=== PATIENT | male | born 1960 | race Hispanic/Latino ===

== ENCOUNTER 2024-06-02 10:37 | Emergency (ER) | payer BC, MEDICARE ==
[~2024-06-02] VITALS: Ht 180.3 cm; Wt 90.7 kg
[2024-06-02 10:50] VITALS: TEMP 97.6
[2024-06-02] MEDS ORDERED: SODIUM CHLORIDE FLUSH 10 ML SYR IV PRN (11:30)
[2024-06-02 11:44] LABS: BASOPHILS # (AUTO) 0.1 (0.0-0.1); BASOPHILS % 0.4 % (0.0-1.0); EOSINOPHILS # (AUTO) 0.1 (0.0-0.4); EOSINOPHILS % 0.8 % (0.0-6.0); HEMATOCRIT 49.2 % (38.2-49.6); HEMOGLOBIN 17.1 g/dL (14.0-18.0); LYMPHOCYTES # (AUTO) 3.3 (1.0-3.2); LYMPHOCYTES % 23.7 % (18.0-39.1); MEAN CORPUSCULAR HEMOGLOBIN 31.3 pg (28-32); MEAN CORPUSCULAR HGB CONC 34.8 g/dL (31-35); MEAN CORPUSCULAR VOLUME 90.1 fL (81-99); MONOCYTES # (AUTO) 0.6 (0.2-0.8); MONOCYTES % 4.3 % (4.4-11.3); NEUTROPHILS # (AUTO) 9.9 (2.1-6.9); NEUTROPHILS % 70.4 % (38.7-80.0); PLATELET COUNT 239 x10e3/uL (140-360); RED BLOOD COUNT 5.46 x10e6/uL (4.3-5.7); RED CELL DISTRIBUTION WIDTH 13.3 % (11.7-14.4); WHITE BLOOD COUNT 14.02 x10e3/uL (4.8-10.8)
[2024-06-02 11:49] LABS: INR 1.04; PROTHROMBIN TIME 14.1 seconds (11.9-14.5)
[2024-06-02 11:50] LABS: PARTIAL THROMBOPLASTIN TIME 24.7 seconds (23.8-35.5)
[2024-06-02 11:56] LABS: ALANINE AMINOTRANSFERASE 24 IU/L (0-55); ALBUMIN 4.3 g/dL (3.5-5.0); ALBUMIN/GLOBULIN RATIO 1.3 (0.8-2.0); ALKALINE PHOSPHATASE 57 IU/L (40-150); ANION GAP 13.7 mmol/L (8-16); BILIRUBIN,TOTAL 0.8 mg/dL (0.2-1.2); BLOOD UREA NITROGEN 18 mg/dL (7-26); BUN/CREATININE RATIO 13 (6-25); CALCIUM 9.7 mg/dL (8.4-10.2); CARBON DIOXIDE 20 mmol/L (22-29); CHLORIDE 107 mmol/L (98-107); EST GLOMERULAR FILTRATION RATE 56 ML/MIN (>=60); GLUCOSE 193 mg/dL (74-118); POTASSIUM 3.7 mmol/L (3.5-5.1); SODIUM 137 mmol/L (136-145); TOTAL PROTEIN 7.6 g/dL (6.5-8.1)
[2024-06-02] MEDS: SODIUM CHLORIDE 0.9% 1000ML 1,000 ML IV ONE (11:59)
[2024-06-02] MEDS: ONDANSETRON HCL INJ 2MG/ML 2ML 2 MG/ML VIAL IV STA (11:59)
[2024-06-02] MEDS: MECLIZINE HCL 12.5 MG TAB PO ONE (12:00)
[2024-06-02 12:06] LABS: TROPONIN I < 0.001 ng/mL (0-0.300)
[2024-06-02] MEDS ORDERED: ALTEPLASE 50 MG/VIAL (29 MILLION IU) IV ONE (12:30)
[2024-06-02] MEDS: ALTEPLASE 100 MG/VIAL IV ONE ×2 (13:05→13:06)
[2024-06-02] MEDS: METOCLOPRAMIDE HCL 10 MG/2ML VIAL IV ONE (13:10)
[2024-06-02 13:50] LABS: CLARITY,URINE CLEAR (CLEAR); COLOR,URINE YELLOW (YELLOW); LEUKOCYTE ESTERASE ,URINE NEGATIVE (NEGATIVE); NITRITE,URINE NEGATIVE (NEGATIVE); PH,URINE 7 (5 - 7)
[2024-06-02 13:51] LABS: BILIRUBIN,URINE NEGATIVE (NEGATIVE); GLUCOSE, URINE 1+ (NEGATIVE); KETONES,URINE TRACE (NEGATIVE); PROTEIN,URINE DIPSTICK NEGATIVE (NEGATIVE); URINE UROBILINOGEN 0.2 mg/dL (0.2 - 1)
[2024-06-02 14:02] LABS: WBC,URINE (MAN) 0-5 /HPF (0-5)
[2024-06-02] MEDS: ASPIRIN 81 MG CHEW TAB PO ONE (14:17)
[2024-06-02 15:41] VITALS: PULSE 90; RESP 16; O2SAT 98
== END 2024-06-02 15:48 | disposition other institution (70) ==
LOC: ER 11:28
DX: R42 Dizziness and giddiness (principal); G81.91 Hemiplegia, unspecified affecting right dominant side; R53.1 Weakness
CPT/HCPCS: 36415; 70450; 71045; 80053; 81001; 82948; 83880; 84484; 85025; 85610; 85730; 93005; 99284; J2405; J2765; J7030; J8597